=== PATIENT | female | born 2000 | race Caucasian/White ===

== ENCOUNTER 2023-08-17 17:40 | Emergency (ER) | payer OTHER ==
[~2023-08-17] VITALS: Ht 167.6 cm; Wt 95.3 kg
[2023-08-17 19:52] VITALS: BP 129/80
== END 2023-08-17 19:53 | disposition home or self-care (01) ==
LOC: ED 17:40
DX: S93.402A Sprain of unspecified ligament of left ankle, initial encounter (principal); X50.1XXA Overexertion from prolonged static or awkward postures, initial encounter
CPT/HCPCS: 73610; 99283-25

== ENCOUNTER 2024-10-18 08:59 | Emergency (ER) | payer OTHER ==
[~2024-10-18] VITALS: Ht 167.6 cm; Wt 97.1 kg
[2024-10-18] MEDS ORDERED: SODIUM CHLORIDE 0.9% 1,000 ML IV ONE (09:30)
[2024-10-18] MEDS ORDERED: ondansetron HCL 4 MG/2 ML VIAL IV ONE (09:30)
[2024-10-18 09:32] LABS: BASOPHILS 0.3 % (0-2); EOSINOPHILS 0.9 % (0-6); HEMOGLOBIN 14.1 g/dL (12.0-18.0); LYMPHOCYTES 30.8 % (24-44); MCHC 34.5 g/dl (30-36); MCV 78.4 fl (81-99); MONOCYTES 5.3 % (0-12); NEUTROPHILS 62.7 % (39-80); PLATELET COUNT 296 K/uL (140-440); RBC 5.23 M/ul (4.3-5.7); RDW 13.5 (10.5-15.0)
[2024-10-18 09:48] LABS: ALBUMIN 3.7 g/dL (3.4-5.0); ALBUMIN/GLOBULIN RATIO 0.93 (1.1-2.4); ANION GAP 14.8 (7-21); BILIRUBIN, TOTAL 0.6 ng/dL (0.2-1.0); BUN/CREATININE RATIO 6.59 (6.0-28.6); CALCIUM 9.5 mg/dL (8.5-10.1); CREATININE, SERUM 0.91 mg/dL (0.55-1.02); POTASSIUM 3.8 mmol/L (3.5-5.1); PROTEIN, TOTAL 7.7 g/dL (6.4-8.2)
[2024-10-18 10:09] LABS: BILIRUBIN, URINE NEGATIVE (negative); BLOOD/HGB, URINE NEGATIVE (Negative); KETONE, URINE NEGATIVE (Negative); LEUK ESTERASE, URINE NEGATIVE (negative); NITRITE, URINE NEGATIVE (negative)
[2024-10-18 12:18] VITALS: BP 130/87
== END 2024-10-18 12:19 | disposition home or self-care (01) ==
LOC: ED 08:59
PROVIDERS: Emergency Medicine
DX: R10.11 Right upper quadrant pain (principal); N20.0 Calculus of kidney; E07.9 Disorder of thyroid, unspecified; Z88.0 Allergy status to penicillin; Z79.890 Hormone replacement therapy; Z79.899 Other long term (current) drug therapy
CPT/HCPCS: 36415; 74177; 80053; 81003; 83690; 84703; 85025; 96361; 99284-25; J2405; J7030; Q9967